=== PATIENT | female | born 2000 | race Caucasian/White ===

== ENCOUNTER 2022-02-02 20:14 | Emergency (ER) | payer BC ==
[2022-02-02] MEDS ORDERED: Nitrofurantoin Monohydrate/Macrocrystalline 100 MG Cap PO ONE (21:26)
== END 2022-02-02 21:30 | disposition home or self-care (01) ==
LOC: JD.ED 20:14
DX: N39.0 Urinary tract infection, site not specified (principal); Z86.16 Personal history of COVID-19
CPT/HCPCS: 81001; 87086; 99283; A9270